=== PATIENT | male | born 1995 | race Caucasian/White ===

== ENCOUNTER 2017-01-13 08:17 | Emergency (ER) | payer SELFPAY ==
[2017-01-13] MEDS ORDERED: Proparacaine 0.5% Opth 15 ML BOT ONE (08:32)
[2017-01-13] MEDS ORDERED: Fluorescein Opthalmic Strip ONE (08:32)
== END 2017-01-13 08:55 | disposition home or self-care (01) ==
LOC: SCSER 08:17
DX: B30.9 Viral conjunctivitis, unspecified (principal); J06.9 Acute upper respiratory infection, unspecified; F17.210 Nicotine dependence, cigarettes, uncomplicated; Z71.6 Tobacco abuse counseling
CPT/HCPCS: 99406